=== PATIENT | female | born 1965 | race Caucasian/White ===

== ENCOUNTER 2017-10-21 08:57 | Emergency (ER) | payer BC ==
[~2017-10-21 08:57] MED LIST: LEVO100T4 PO; XANA0.5T PO; Z.0.BCPILL PO; ZIAC106.25 PO
[2017-10-21] MEDS ORDERED: SODIUM CHLOR 0.9% 1000 ML INJ 1,000 ML IV ONE (09:12)
[2017-10-21] MEDS ORDERED: SODIUM CHLORIDE 0.9% FLUSH 10 ML FLUSH IVF PRN (09:15)
[2017-10-21] MEDS ORDERED: BISO10TA2 PO (09:31)
[2017-10-21] MEDS ORDERED: LEVO100T5 PO (09:31)
[2017-10-21 09:32] LABS: AUTOMATED NEUTROPHIL # 9.2 TH/MM3 (1.8-7.7); BASOPHIL % 0.4 % (0.0-2.0); EOSINOPHIL % 0.4 % (0.0-4.0); HEMATOCRIT 28.7 % (35.0-46.0); LYMPHOCYTE # 1.4 TH/MM3 (1.0-4.8); MEAN CORPUSCULAR HEMOGLOBIN 31.9 PG (27.0-34.0); MEAN CORPUSCULAR HGB CONC 34.7 % (32.0-36.0); MEAN PLATELET VOLUME 7.6 FL (7.0-11.0); MONO % 2.4 % (0.0-8.0); MONOCYTE # 0.3 TH/MM3 (0-0.9); NEUT % 83.8 % (16.0-70.0); PLATELET COUNT 240 TH/MM3 (150-450); RED BLOOD COUNT 3.12 MIL/MM3 (4.00-5.30); RED CELL DISTRIBUTION WIDTH 12.4 % (11.6-17.2); WHITE BLOOD COUNT 10.9 TH/MM3 (4.0-11.0)
--- NOTE | 2017-10-21 09:43 | PD ---
HPI . Near syncope Chief Complaint: Syncope/Near-Syncope Time Seen by Provider: 09:05 Travel History International Travel<30 days: No Contact w/Intl Traveler<30days: No Traveled to known affect area: No History of Present Illness HPI Patient presents following a near syncopal episode at home just prior to presentation. She was standing up at the time. She is to the ground and did not injure herself. She presents to us stating that she now feels very weak. Symptoms are exacerbated by standing and improved by lying. Context is that she is status post colonoscopy and polypectomy yesterday. She had 2 episodes of large, bloody stools during the night last night. She denies associated abdominal pain. Then, when she awakened and got out of bed this morning, she had the near syncopal event. She has had no further bleeding. Last episode of bleeding was about 3:30 AM. 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) GERD: No Genitourinary: No Headaches: No Hepatitis: No Hiatal Hernia: No Heparin Induced Thrombocytopen: No Hypertension: Yes Immune Disorder: No Implanted Vascular Access Dvce: No Kidney Stones: No Medical other: No Musculoskeletal: No Neurologic: No Psychiatric: No Reproductive: No Respiratory: No Migraines: No Radiation Therapy: No Renal Failure: No Seizures: No Sickle Cell Disease: No Sleep Apnea: No Thyroid Disease: Yes (hypothyroidism) Ulcer: No ?: Not LMP: 61.5 Past Surgical History Abdominal Surgery: No AICD: No Arteriovenous Shunt: No Cardiac Surgery: No Coronary Artery Bypass Graft: No Ear Surgery: No Endocrine Surgery: No Eye Surgery: No Genitourinary Surgery: No Gynecologic Surgery: No Insulin Pump: No Joint Replacement: No Neurologic Surgery: No Oral Surgery: Yes (wisdom teeth removal) Pacemaker: No Thoracic Surgery: No Other Surgery: Yes (wisdom teeth removal) Family History Family Myocardial Infarction: No Social History Alcohol Use: Yes (8 BEERS DAILY) Tobacco Use: No Substance Use: No Allergies-Medications (Allergen,Severity, Reaction): Coded Allergies: acetaminophen (Unverified Adverse Reaction, Mild, Nausea/Vomiting, 10/21/17 ) hydrocodone (Unverified Adverse Reaction, Mild, Nausea/Vomiting, 10/21/17) Reported Meds & Prescriptions Reported Meds & Active Scripts Active Reported Levothyroxine (Levothyroxine Sodium) 100 Mcg Tab 100 Mcg PO DAILY Bisoprolol-Hydrochlorothiazide 10-6.25 Mg Tab 1 Tab PO DAILY Review of Systems Except as stated in HPI: all other systems reviewed are Neg General / Constitutional: No: Fever, Chills Eyes: No: Blurred Vision Cardiovascular: No: Chest Pain or Discomfort Respiratory: No: Shortness of Breath Gastrointestinal: Positive: Hematochezia, No: Nausea, Vomiting, Diarrhea, Abdominal Pain Genitourinary: No: Urgency, Frequency, Dysuria Neurologic: Positive: Weakness, Dizziness (Near syncope) Physical Exam Narrative GENERAL: Patient looks a little pale. SKIN: warm/dry. HEAD: Normocephalic. Atraumatic. EYES: Pupils equal and round. No scleral icterus. No injection or drainage. ENT: No nasal bleeding or discharge. Mucous membranes pink and moist. NECK: Trachea midline. Full range of motion without pain.. CARDIOVASCULAR: Regular rate and rhythm. RESPIRATORY: No accessory muscle use. Clear to auscultation. Breath sounds equal bilaterally. GASTROINTESTINAL: Abdomen soft. Nontender. Bowel sounds present. Nondistended. MUSCULOSKELETAL: No obvious deformities. NEUROLOGICAL: Awake and alert. No obvious cranial nerve deficits. Motor grossly within normal limits. Normal speech. PSYCHIATRIC: Appropriate mood and affect; insight and judgment normal. Data Data Last Documented VS Vital Signs Date Time Temp Pulse Resp B/P (MAP) Pulse Ox O2 Delivery O2 Flow Rate FiO2 10/21/17 10:18 70 16 111/68 (82) 99 Room Air Orders Orders Basic Metabolic Panel (Bmp) (10/21/17 09:12) Complete Blood Count With Diff (10/21/17 09:12) Iv Access Insert/Monitor (10/21/17 09:12) Sodium Chloride 0.9% Flush (Ns Flush) (10/21/17 09:15) Sodium Chlor 0.9% 1000 Ml Inj (Ns 1000 M (10/21/17 09:12) Labs Laboratory Tests Test 10/21/17 09:21 White Blood Count 10.9 TH/MM3 Red Blood Count 3.12 MIL/MM3 Hemoglobin 10.0 GM/DL Hematocrit 28.7 % Mean Corpuscular Volume 92.0 FL Mean Corpuscular Hemoglobin 31.9 PG Mean Corpuscular Hemoglobin Concent 34.7 % Red Cell Distribution Width 12.4 % Platelet Count 240 TH/MM3 Mean Platelet Volume 7.6 FL Neutrophils (%) (Auto) 83.8 % Lymphocytes (%) (Auto) 13.0 % Monocytes (%) (Auto) 2.4 % Eosinophils (%) (Auto) 0.4 % Basophils (%) (Auto) 0.4 % Neutrophils # (Auto) 9.2 TH/MM3 Lymphocytes # (Auto) 1.4 TH/MM3 Monocytes # (Auto) 0.3 TH/MM3 Eosinophils # (Auto) 0.0 TH/MM3 Basophils # (Auto) 0.0 TH/MM3 CBC Comment DIFF FINAL Differential Comment Blood Urea Nitrogen 6 MG/DL Creatinine 0.52 MG/DL Random Glucose 105 MG/DL Calcium Level 8.2 MG/DL Sodium Level 134 MEQ/L Potassium Level 3.4 MEQ/L Chloride Level 98 MEQ/L Carbon Dioxide Level 27.9 MEQ/L Anion Gap 8 MEQ/L Estimat Glomerular Filtration Rate 124 ML/MIN MDM Medical Decision Making Medical Screen Exam Complete: Yes Emergency Medical Condition: Yes Differential Diagnosis Differential diagnosis of weakness includes but is not limited to infection, CVA , electrolyte disturbance, renal failure, hypoglycemia Narrative Course This patient presents status post a near syncopal event was followed rectal blood loss during the night. She is status post colonoscopy with polypectomy yesterday. She had significant rectal bleeding during the night last night and awakened today and had a near syncopal event. She now feels very weak. Her blood pressure is a little bit low with a systolic of about 90. She will be treated with IV fluids. Workup for possible anemia is in process. CBC & BMP Diagram 10/21/17 09:21 Calcium Level 8.2 L Unfortunately, I do not have a baseline recent H&H. Her last H&H in our system was when she was hospitalized for hysterectomy. She had a lot of bleeding with the surgery and required blood transfusion. So, she was anemic with that visit. I believe that it makes sense to go ahead and start her on some iron. Her symptomatology has improved while here with IV fluids. Vital Signs Date Time Temp Pulse Resp B/P (MAP) Pulse Ox O2 Delivery O2 Flow Rate FiO2 10/21/17 10:18 70 16 111/68 (82) 99 Room Air She is now stable for discharge to home. Diagnosis Primary Impression: Near syncope Additional Impression: Rectal bleeding Patient Instructions: General Instructions, Near Syncope (DC) Additional Instructions: Start taking an [id number] iron preparation. See your doctor next week to have your blood count checked again. Return here if you develop increased weakness, dizziness or nearly pass out. Disposition: 01 DISCHARGE HOME Condition: Stable Mary Stephenson MD Oct 21, 2017 09:43
[2017-10-21 09:51] LABS: CALCIUM 8.2 MG/DL (8.5-10.1)
[2017-10-21 09:53] LABS: BICARBONATE 27.9 MEQ/L (21.0-32.0)
[2017-10-21 09:55] LABS: CREATININE 0.52 MG/DL (0.50-1.00)
[2017-10-21 10:18] VITALS: BP 111/68; PULSE 70; RESP 16; O2SAT 99
== END 2017-10-21 11:05 | disposition home or self-care (01) ==
LOC: PHED 08:57
DX: R55 Syncope and collapse (principal); K92.1 Melena; I10 Essential (primary) hypertension; E03.9 Hypothyroidism, unspecified; Z98.890 Other specified postprocedural states
CPT/HCPCS: 80048; 85025; 96360; 96361; 99284; J7030